=== PATIENT | male | born 1985 | race Caucasian/White ===

== ENCOUNTER 2019-09-22 16:31 | IRF | payer OTHER, SELFPAY ==
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
--- NOTE | ~2019-09-22 | XR_ITS ---
EXAMINATION: XR barium swallow modified DATE: 09/25/2019 10:20 INDICATION: Recent intubation. TECHNIQUE: The patient was given barium-containing material of multiple consistencies to swallow by t he speech pathologist while I performed fluoroscopy. Fluoroscopy exposure time was 0.9 minutes. The n umber of fluoroscopy images saved to the PACS was 1. Dose-area product was 0.648 Gy-cm^2. FINDINGS: There is laryngeal penetration of uncontrolled thin liquids. No aspiration. IMPRESSION: 1. Laryngeal penetration of uncontrolled thin liquids. No aspiration. 2. Please refer to the speech therapy report for recommendations. Reviewed, dictated and finalized at location A.
[2019-09-22 16:25] VITALS: BP 111/66; PULSE 104; RESP 20; TEMP 36.6; O2SAT 99; BMI 20.5
--- NOTE | 2019-09-22 16:40 | ADMGEN ---
This patient, Hang A Patricia, was admitted to [facility] Room 225-02. Patient/family oriented to hospital policies and general routines including ID bracelet, bed and alarms, visiting hours, pain management, procedures, bathroom and other care routines, personal items, smoking policy, room service/diet, and visiting hours. Valuables list has been completed. Information on how to activate the Rapid Response Team has been discussed. Patient/Family are encouraged to report perceived risks to care and to ask questions if they do not understand what they are told or what they should do.
[2019-09-22 16:50] VITALS: BMI 21.1
[2019-09-22 21:57] VITALS: BP 99/45; PULSE 93; RESP 18; TEMP 35.9; O2SAT 97
[2019-09-23 05:24] LABS: Basophils Absolute Auto 0.1 K/mm3 (0.0-0.1); Basophils Percent Auto 1.3 % (0.2-1.2); Eosinophils Absolute Auto 1.1 K/mm3 (0-0.3); Eosinophils Percent Auto 10.8 % (0-4.4); Hematocrit 33.9 % (42.0-52.0); Hemoglobin 11.2 g/dL (14.0-18.0); Immature Granulocyte Absolute 0.38 K/mm3 (0.00-0.031); Immature Granulocyte Percent A 3.7 % (0-0.5); Lymphocytes Absolute Auto 2.11 K/mm3 (0.9-3.2); Lymphocytes Percent Auto 20.4 % (18.3-44.2); Mean Corpuscular Hemoglobin 28.9 pg (26-34); Mean Corpuscular Volume 87.4 fl (80-100); Mean Platelet Volume 9.4 fl (7.4-10.4); Monocytes Absolute Auto 1.1 K/mm3 (0.1-0.6); Monocytes Percent Auto 10.7 % (2.6-8.5); Neutrophils Absolute Auto 5.5 K/mm3 (1.3-6.7); Neutrophils Percent Auto 53.1 % (45.5-73.1); Platelet Count Result 534 k/mm3 (150-375); Red Blood Count 3.88 M/mm3 (4.6-6.20); Red Cell Distribution Width 13.3 % (11.5-14.5); White Blood Count 10.3 K/mm3 (4.5-10.0)
[2019-09-23 05:33] LABS: Blood Urea Nitrogen 19 mg/dL (9-20); Calcium 9.1 mg/dL (8.4-10.2); Carbon Dioxide 32 mmol/L (22-30); Chloride 95 mmol/L (98-107); Estimated CRCL calculation 105 ml/min; Estimated Glomerular Filt Rate > 60; Glucose 103 mg/dL (75-110); Potassium 4.3 mmol/L (3.4-5.0); Sodium 133 mmol/L (137-145)
[2019-09-23 06:00] VITALS: BP 104/50; PULSE 84; RESP 185; TEMP 35.9; O2SAT 97
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
[2019-09-23] MEDS: APIXABAN 2.5 MG TABLET PO ×2 (10:13→18:52)
[2019-09-23] MEDS: DOCUSATE SODIUM LIQ 100 MG/10 ML UDC 50 MG PO (10:13)
[2019-09-23] MEDS: BACITRACIN OINTMENT 15 GM TUBE 1 APPLIC TOPICAL ×2 (10:13→17:56)
[2019-09-23 11:00] VITALS: BMI 21.1
--- NOTE | 2019-09-23 11:20 | PCNSR ---
On 09/23/19, the student, Lobo Granados, provided care and completed [facility] documentation on this patient. I have reviewed the student's documentation and agree with the findings.
--- NOTE | 2019-09-23 11:44 | PCPTNOTE ---
Hang Patricia was evaluated for a hemicane on 09/23/2019 by this physical therapist. The hemicane will resolve patient's mobility limitations and will be used for ADL's within the home. The patient can safely use the hemicane. ?The hemicane will resolve the patient?s mobility deficits, including safe transfers and short distance gait. Fide Pulliam PT
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
[2019-09-23 14:00] VITALS: BP 115/64; PULSE 94; RESP 20; TEMP 37.1; O2SAT 100
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
--- NOTE | 2019-09-23 16:30 | PCCCNOTE ---
On 09/23/19, the student, [Awais Cespedes], provided care and completed [facility] documentation on this patient. I have reviewed the student's documentation and agree with the findings.
[2019-09-23] MEDS: CYCLOBENZAPRINE HCL 10 MG TABLET PO (19:59)
[2019-09-23 22:00] VITALS: BP 114/68; PULSE 82; RESP 18; TEMP 36.4; O2SAT 100
[2019-09-24] MEDS: CYCLOBENZAPRINE HCL 10 MG TABLET PO ×3 (02:59→20:19)
[2019-09-24 06:00] VITALS: BP 118/64; PULSE 72; RESP 18; TEMP 36.4; O2SAT 99
[2019-09-24] MEDS: APIXABAN 2.5 MG TABLET PO ×2 (09:51→17:18)
[2019-09-24] MEDS: BACITRACIN OINTMENT 15 GM TUBE 1 APPLIC TOPICAL ×2 (09:51→17:18)
[2019-09-24] MEDS: DOCUSATE SODIUM 100 MG CAPSULE PO (09:51)
[2019-09-24 11:14] VITALS: PULSE 72; RESP 18; O2SAT 99
[2019-09-24 14:00] VITALS: BP 113/55; PULSE 106; RESP 20; TEMP 36.6; O2SAT 99
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
[2019-09-24 21:58] VITALS: BP 106/55; PULSE 80; RESP 16; TEMP 36.9; O2SAT 97
[2019-09-25] MEDS: CYCLOBENZAPRINE HCL 10 MG TABLET PO ×2 (04:15→13:10)
[2019-09-25 06:00] VITALS: BP 108/58; PULSE 93; RESP 18; TEMP 36.7; O2SAT 97
[2019-09-25] MEDS: DOCUSATE SODIUM 100 MG CAPSULE PO (08:47)
[2019-09-25] MEDS: APIXABAN 2.5 MG TABLET PO ×2 (08:47→16:47)
[2019-09-25] MEDS: BACITRACIN OINTMENT 15 GM TUBE 1 APPLIC TOPICAL ×2 (08:50→16:47)
--- NOTE | 2019-09-25 12:10 | PCSTNOTE ---
Modified barium swallow study completed. Please see ST evaluation for further information.
[2019-09-25 14:00] VITALS: BP 113/69; PULSE 103; RESP 20; TEMP 36.3; O2SAT 100
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
[2019-09-25 22:00] VITALS: BP 120/60; PULSE 94; RESP 18; TEMP 36; O2SAT 98
--- NOTE | 2019-09-26 01:45 | PCOTNOTE ---
Attempted to see patient for afternoon occupational therapy session, but patient was on hold per nursing pending further medical workup.
[2019-09-26 06:00] VITALS: BP 117/70; PULSE 90; RESP 18; TEMP 35.9; O2SAT 97
[2019-09-26] MEDS: APIXABAN 2.5 MG TABLET PO ×2 (08:18→17:24)
[2019-09-26] MEDS: DOCUSATE SODIUM 100 MG CAPSULE PO (08:18)
[2019-09-26] MEDS: BACITRACIN OINTMENT 15 GM TUBE 1 APPLIC TOPICAL ×2 (08:19→17:26)
[2019-09-26] MEDS: CYCLOBENZAPRINE HCL 10 MG TABLET PO ×2 (08:20→17:26)
[2019-09-26 09:27] LABS: Basophils Absolute Auto 0.1 K/mm3 (0.0-0.1); Basophils Percent Auto 0.7 % (0.2-1.2); Eosinophils Percent Auto 8.8 % (0-4.4); Hematocrit 36.5 % (42.0-52.0); Immature Granulocyte Absolute 0.18 K/mm3 (0.00-0.031); Immature Granulocyte Percent A 1.6 % (0-0.5); Lymphocytes Absolute Auto 1.64 K/mm3 (0.9-3.2); Lymphocytes Percent Auto 14.3 % (18.3-44.2); Mean Corpuscular HGB Conc 32.9 g/dl (32-36); Mean Corpuscular Hemoglobin 28.9 pg (26-34); Mean Platelet Volume 8.8 fl (7.4-10.4); Monocytes Percent Auto 8.6 % (2.6-8.5); Neutrophils Absolute Auto 7.6 K/mm3 (1.3-6.7); Platelet Count Result 426 k/mm3 (150-375); Red Blood Count 4.15 M/mm3 (4.6-6.20); Red Cell Distribution Width 13.6 % (11.5-14.5); White Blood Count 11.5 K/mm3 (4.5-10.0)
[2019-09-26 09:41] LABS: Alanine Aminotransferase 56 U/L (4-50); Albumin Level 3.7 g/dL (3.5-5.1); Alkaline Phosphatase 246 U/L (38-126); Aspartate Amino Transferase 36 U/L (17-59); Bilirubin,Total 0.3 mg/dL (0.2-1.3); Blood Urea Nitrogen 15 mg/dL (9-20); Calcium 9.4 mg/dL (8.4-10.2); Carbon Dioxide 29 mmol/L (22-30); Chloride 100 mmol/L (98-107); Estimated CRCL calculation 119 ml/min; Estimated Glomerular Filt Rate > 60; Glucose 108 mg/dL (75-110); Potassium 3.9 mmol/L (3.4-5.0); Sodium 138 mmol/L (137-145)
--- NOTE | 2019-09-26 09:59 | PCOTNOTE ---
OT treatment withheld due to change in medical status. Treatment rescheduled for this afternoon pending physician recommendation. Will continue to follow.
--- NOTE | 2019-09-26 11:15 | PCPTNOTE ---
Patient did not have physical therapy this am due to medical changes/nursing hold. Will attempt in pm if nursing ok's. Fide Pulliam PT
[2019-09-26 14:00] VITALS: BP 111/65; PULSE 92; RESP 20; TEMP 36.5; O2SAT 99
--- NOTE | 2019-09-26 14:18 | PC.NURSE ---
call placed to [facility] trauma surgery regarding patient's ct results as well as notes from wound nurse regarding fluid pocket noted this morning. awaiting call back at this time. Dr Victoria also updated on CT results and requested surgical consult. Dr Martinez's office called with consult. pt's mom at bedside. Patient and mom updated that Dr Victoria requested a surgical consult. will continue to monitor.
--- NOTE | 2019-09-26 14:30 | PC.NURSE ---
Roderick ACID PUMPER from trauma surgery returned call at this time. Discussed with him the CT results and findings from wound care nurse this morning. Roderick stated that it should be appropriate for general surgery here to look into the draining abscess to see if they could handle it here. He stated they were aware of the adrenal mass and the liver laceration. He stated there was debridement done to that R flank area where road rash is on approximately 09/02 and 09/05.
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
[2019-09-26 22:00] VITALS: BP 125/61; PULSE 99; RESP 18; TEMP 36.8; O2SAT 98
[2019-09-27] VITALS (11 sets, daily range): BP systolic 104–128; BP diastolic 57–76; PULSE 81–116; RESP 16–22; TEMP 36.5–37.4; O2SAT 94–100
[2019-09-27] MEDS: CYCLOBENZAPRINE HCL 10 MG TABLET PO ×2 (02:25→16:54)
[2019-09-27 05:14] LABS: Hematocrit 33.5 % (42.0-52.0); Hemoglobin 10.9 g/dL (14.0-18.0); Mean Corpuscular HGB Conc 32.5 g/dl (32-36); Mean Corpuscular Hemoglobin 28.9 pg (26-34); Mean Corpuscular Volume 88.9 fl (80-100); Platelet Count Result 380 k/mm3 (150-375); Red Blood Count 3.77 M/mm3 (4.6-6.20); Red Cell Distribution Width 13.5 % (11.5-14.5); White Blood Count 11.3 K/mm3 (4.5-10.0)
--- NOTE | 2019-09-27 07:50 | PM.PNGS ---
Progress Note: A&P Assessment and Plan (1) Post-traumatic seroma: Code(s): T79.2XXA - Traumatic secondary and recurrent hemorrhage and seroma, initial encounter Status: Acute Assessment and Plan: Patient still having swelling and pain in region of right flank and hip. Will proceed with incision and drainage of right flank seroma today. Discussed procedure, risks, benefits, and alternatives. Questions answered. (2) Multiple abrasions: Code(s): T07.XXXA - Unspecified multiple injuries, initial encounter Status: Acute Subjective Subjective Date/Time Seen: 09/27/19 07:50 Patient still has swelling and pain in right flank/hip region. No fevers. Exam Skin: Other: Eschar and abrasion overlying the right flank/hip region with swelling and small bulla forming. No erythema or purulent drainage. Objective Data Vital Signs Vital Signs: Vital Signs - 24 hr 09/26/19 14:00 09/26/19 22:00 09/27/19 06:00 Temperature 36.5 C 36.8 C 36.5 C Pulse Rate 92 99 81 Respiratory Rate 20 18 17 Blood Pressure 111/65 125/61 108/57 L Pulse Oximetry 99 98 97 Intake/Output Intake/Output: Intake & Output 09/24/19 09/25/19 09/26/19 09/27/19 23:59 23:59 23:59 23:59 Intake Total 720 480 720 Balance 720 480 720 Meds/Results Medications: Active Medications Generic Name Dose Route Start Last Admin Trade Name Freq PRN Reason Stop Dose Admin Hydrocodone Bitart/Acetaminophen 1 tab 09/22/19 18:53 09/27/19 06:25 [place] 5-325 Mg PO 1 tab Q4H PRN Administration Pain Rated 4-6 Apixaban 2.5 mg 09/23/19 09:00 09/26/19 17:24 Eliquis PO 10/27/19 17:01 2.5 mg BID RADHA Administration Bacitracin 1 applic 09/22/19 17:00 09/26/19 17:26 Bacitracin Oint 15 Gm TOPICAL 10/23/19 17:01 1 applic BID RADHA Administration Bisacodyl 10 mg 09/22/19 17:58 Dulcolax Suppository RECTAL DAILY PRN Constipation Cyclobenzaprine HCl 10 mg 09/22/19 17:58 09/27/19 02:25 Flexeril PO 10 mg TID PRN Administration Muscle Spasm Docusate Sodium 100 mg 09/24/19 09:00 09/26/19 08:18 Colace Capsule PO 100 mg QAM RADHA Administration Radiology Results: ITS Impressions Modified Barium Swallow 09/25/19 10:58 IMPRESSION: 1. Laryngeal penetration of uncontrolled thin liquids. No aspiration. 2. Please refer to the speech therapy report for recommendations. Abdomen/Pelvis CT 09/26/19 12:47 IMPRESSION: 1. Superficial draining abscess of the right flank subcutaneous tissues with apparent mild involvement of the superolateral aspect of the right gluteus leida muscle. 2. Evolving liver laceration. 3. 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 4. Healing pelvic fractures as described above. 5. Moderate-sized right and small left pleural effusions with associated atelectasis in the lower lobes. Labs Labs: Laboratory Results - last 24 hr 09/26/19 09/26/19 09/27/19 09:15 09:15 04:55 WBC 11.5 H 11.3 H RBC 4.15 L 3.77 L Hgb 12.0 L 10.9 L Hct 36.5 L 33.5 L MCV 88.0 88.9 MCH 28.9 28.9 MCHC 32.9 32.5 RDW 13.6 13.5 Plt Count 426 H 380 H MPV 8.8 9.0 Immature Gran % (Auto) 1.6 H Neut % (Auto) 66.0 Lymph % (Auto) 14.3 L Boyle % (Auto) 8.6 H Eos % (Auto) 8.8 H Baso % (Auto) 0.7 Lymph # (Auto) 1.64 Boyle # (Auto) 1.0 H Eos # (Auto) 1.0 H Baso # (Auto) 0.1 Abs Immat Gran (auto) 0.18 H Absolute Neuts (auto) 7.6 H Absolute Nucleated RBC 0.0 Nucleated RBC % 0.0 Sodium 138 Potassium 3.9 Chloride 100 Carbon Dioxide 29 BUN 15 Creatinine 0.70 Estim Creat Clear Calc 119 Estimated GFR > 60 Glucose 108 Calcium 9.4 Total Bilirubin 0.3 AST 36 ALT 56 H Alkaline Phosphatase 246 H Total Protein 7.0 Albumin 3.7
--- NOTE | 2019-09-27 08:09 | PCOTNOTE ---
Patient declined OT treatment this AM due to c/o pain and fatigue. Will continue per POC.
--- NOTE | 2019-09-27 09:47 | PCPTNOTE ---
Attempted PT treatment. Pt refused as he is having surgery this afternoon. Will try again tomorrow.
--- NOTE | 2019-09-27 09:52 | PC.NURSE ---
spoke with Dr Pollack this morning regarding medications due this morning and updated Dr about NPO status and surgical procedure with Dr Martinez. Dr Pollack said okay to go ahead and hold PO meds this morning which are eliquis and colace.
[2019-09-27] MEDS: BACITRACIN OINTMENT 15 GM TUBE 1 APPLIC TOPICAL ×2 (09:55→16:56)
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
--- NOTE | 2019-09-27 12:49 | PCSTNOTE ---
Patient refused tx this date due to medical condition.
--- NOTE | 2019-09-27 12:51 | PC.NURSE ---
patient being taken down to surgery at this time for his procedure. He is being accompanied by OR staff. His mom is at his bedside at this time.
[2019-09-27] MEDS: LACTATED RINGERS 1,000 ML 30 ML IV CONT (13:05)
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
--- NOTE | 2019-09-27 14:03 | SUR.PREOP ---
Discussed delay with patient. Voices understanding.
[2019-09-27] MEDS: BUPIVACAINE/EPINEPHRINE 0.5% 10 ML VIAL 11 ML INFILTRATE (14:48)
--- NOTE | 2019-09-27 15:10 | PCOTNOTE ---
Therapist discussed equipment needs with patient's mother. Patient's mother reports they will not need tub seat or bedside commode at this time as she has just remodeled her bathroom and they will not be necessary.
--- NOTE | 2019-09-27 15:55 | PC.NURSE ---
pt arrived back to the unit. no s/s of any distress noted. will continue to monitor.
[2019-09-27] MEDS: APIXABAN 2.5 MG TABLET PO (16:53)
--- NOTE | 2019-09-27 17:07 | P.OP_ITS ---
Procedure Note - Detailed Date of procedure: 09/27/19 Pre-op diagnosis: traumatic seroma Post-op diagnosis: other (necrotic wound right hip, post traumatic seroma right hip) Procedure performed: 1. Sharp excisional debridement of 7 cm x 2.5 cm right hip necrotic wound including skin 2. Incision and drainage of right hip posttraumatic seroma Description of procedure: * Procedure as well as risks, benefits, and alternatives were discussed to the patient. Written consent was obtained and placed in chart prior to procedure. Patient was brought back to surgical suite. He was placed supine on operating table. Time-out was done to confirm patient and procedure. Patient was intubated by Anesthesia Department with LMA. His right hip area was prepped and draped in sterile fashion using Betadine prep. The area of abrasion and necrotic tissue was identified in the right hip region. 0.5% bupivacaine with epinephrine was infiltrated locally around the necrotic tissue. A 15 blade scalpel then used to sharply debride the necrotic skin. This appeared to be full-thickness and once excising this necrotic skin, I entered into the seroma. The seroma was opened and drained completely. The wound bed was inspected and appeared healthy and viable. There was no evidence of purulence drainage or necrotizing fasciitis. The wound was irrigated with sterile saline and then was measured and packed with 1 in iodoform gauze. Fluff gauze and ABD pad and Medipore tape were then applied. Patient was awakened from anesthesia and transferred to recovery. Anesthesia: GLMA and local ( 0.5% bupivacaine with epinephrine) Surgeon: Zan Martinez DO Estimated blood loss (mL): 5 Packing: Yes (1 Iodoform gauze) Pathology: none sent Complications: No immediate complications Condition: stable Disposition: other ( TRC) Findings: * the patient had an abrasion over his right hip area with a necrotic eschar on the surface in the central portion. There was swelling deep to this area. There was 1 small bulla just inferior to the eschar that was draining serous fluid. The eschar was sharply debrided using a 15 blade scalpel. It was excised all the way back to healthy viable appearing tissue. The debridement included skin only. The dimensions of the debridement measured 7 cm x 2.5 cm. Once the necrotic skin was excised, the seroma was entered and drained completely. This appeared to be a very wide subcutaneous seroma without any evidence of infection. The fluid appeared to be a clear yellow serous fluid. The seroma extended approximately 4 cm underneath the skin in the 4-5 o'clock position. It tunneled 12 cm inferiorly at the 6 to 7 o'clock position. It tunneled 6 cm in the 9 o'clock position and 2 cm in the 10-12 o'clock position. The wound was loosely packed with 1 in iodoform gauze. No cultures were taken as this appeared to be sterile fluid collection and no specimens were sent for pathology.
--- NOTE | 2019-09-27 17:41 | PC.NURSE ---
pt has dressing intact from surgery. no new wound orders at this time. patient stated Dr told him it would get changed tomorrow and that Dr was debating on best treatment for the area. will continue to monitor.
[2019-09-28 05:58] VITALS: BP 117/64; PULSE 99; RESP 18; TEMP 36.4; O2SAT 99
[2019-09-28] MEDS: CYCLOBENZAPRINE HCL 10 MG TABLET PO ×2 (07:14→23:04)
--- NOTE | 2019-09-28 08:03 | WPDANESPN ---
Anes - Prog Note Post-Op Date/Time: 09/28/19 08:03 Cardiovascular status: normal Respiratory status: normal Airway patency: baseline Mental status: baseline Post-Op hydration status: normal Vital Signs: Last Vital Signs Temp 36.4 C 09/28/19 05:58 Pulse 99 09/28/19 05:58 Resp 18 09/28/19 05:58 BP 117/64 09/28/19 05:58 Pulse Ox 99 09/28/19 05:58 I/O: Intake & Output 09/27/19 09/28/19 09/28/19 23:59 07:59 15:59 Intake Total 710 Balance 710 Laboratory Tests 09/27/19 04:55 09/26/19 09:15 Post-procedural complaints: none Patient Feedback: Patient satisfied with anesthetic care.
[2019-09-28] MEDS: DOCUSATE SODIUM 100 MG CAPSULE PO (09:24)
[2019-09-28] MEDS: APIXABAN 2.5 MG TABLET PO ×2 (09:24→16:20)
[2019-09-28] MEDS: BACITRACIN OINTMENT 15 GM TUBE 1 APPLIC TOPICAL ×2 (09:28→16:21)
[2019-09-28] MEDS: HYDROmorphone HCL 2 MG/ML VIAL 1 MG IV PUSH (09:35)
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
--- NOTE | 2019-09-28 10:48 | PCNSR ---
On 09/28/19, the student, Lobo Granados, provided care and completed [facility] documentation on this patient. I have reviewed the student's documentation and agree with the findings.
[2019-09-28 14:00] VITALS: BP 111/59; PULSE 110; RESP 20; TEMP 36.7; O2SAT 97
--- NOTE | 2019-09-28 14:11 | PCOTNOTE ---
Attempted to see patient this pm, however patient declined due to pain. Pt reported 8/10 tearing pain.
--- NOTE | 2019-09-28 14:19 | PM.PNGS ---
Progress Note: A&P Assessment and Plan (1) Post-traumatic seroma: Code(s): T79.2XXA - Traumatic secondary and recurrent hemorrhage and seroma, initial encounter Status: Acute Assessment and Plan: Continue wound care with wound vac changes. Monitor for any signs of infection. Will re-assess on Thursday. (2) Nonhealing nonsurgical wound: Code(s): T14.8XXA - Other injury of unspecified body region, initial encounter Status: Acute Subjective Subjective Date/Time Seen: 09/28/19 14:19 Patient doing well today. Wound care nurses removed packing and placed wound vac today. Minimal drainage so far in wound vac. Exam Skin: Other: Wound vac in place over right hip wound. Surrounding skin health appearing. Objective Data Vital Signs Vital Signs: Vital Signs - 24 hr 09/27/19 14:53 09/27/19 15:05 09/27/19 15:20 Temperature 36.5 C Pulse Rate 84 98 94 Respiratory Rate 20 18 18 Blood Pressure 109/66 105/65 107/69 Pulse Oximetry 99 100 97 09/27/19 15:35 09/27/19 15:55 09/27/19 16:10 Temperature 36.6 C 36.5 C Pulse Rate 94 90 99 Respiratory Rate 20 16 18 Blood Pressure 104/63 108/62 107/60 Pulse Oximetry 94 96 94 09/27/19 17:40 09/27/19 21:59 09/28/19 05:58 Temperature 36.9 C 36.7 C 36.4 C Pulse Rate 116 H 111 H 99 Respiratory Rate 22 H 18 18 Blood Pressure 112/68 128/76 117/64 Pulse Oximetry 97 97 99 Intake/Output Intake/Output: Intake & Output 09/25/19 09/26/19 09/27/19 09/28/19 23:59 23:59 23:59 23:59 Intake Total 480 720 710 240 Output Total 840 Balance 480 720 -130 240 Meds/Results Medications: Active Medications Generic Name Dose Route Start Last Admin Trade Name Freq PRN Reason Stop Dose Admin Hydrocodone Bitart/Acetaminophen 2 tab 09/28/19 09:08 [place] 5-325 Mg PO Q4H PRN Pain Rated 4-6 Apixaban 2.5 mg 09/23/19 09:00 09/28/19 09:24 Eliquis PO 10/27/19 17:01 2.5 mg BID RADHA Administration Bacitracin 1 applic 09/22/19 17:00 09/28/19 09:28 Bacitracin Oint 15 Gm TOPICAL 10/23/19 17:01 1 applic BID RADHA Administration Bisacodyl 10 mg 09/22/19 17:58 Dulcolax Suppository RECTAL DAILY PRN Constipation Cyclobenzaprine HCl 10 mg 09/22/19 17:58 09/28/19 07:14 Flexeril PO 10 mg TID PRN Administration Muscle Spasm Docusate Sodium 100 mg 09/24/19 09:00 09/28/19 09:24 Colace Capsule PO 100 mg QAM RADHA Administration Hydromorphone HCl 1 mg 09/28/19 09:25 09/28/19 09:35 Dilaudid Inj IV PUSH 1 mg Q4HR PRN Administration Wound Care Polysaccharide Iron Complex 150 mg 09/28/19 17:00 Niferex-150 PO BIDWM RADHA Simethicone 80 mg 09/27/19 17:48 Mylicon PO QID PRN Gas Discomfort Radiology Results: ITS Impressions Modified Barium Swallow 09/25/19 10:58 IMPRESSION: 1. Laryngeal penetration of uncontrolled thin liquids. No aspiration. 2. Please refer to the speech therapy report for recommendations. Abdomen/Pelvis CT 09/26/19 12:47 IMPRESSION: 1. Superficial draining abscess of the right flank subcutaneous tissues with apparent mild involvement of the superolateral aspect of the right gluteus leida muscle. 2. Evolving liver laceration. 3. 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 4. Healing pelvic fractures as described above. 5. Moderate-sized right and small left pleural effusions with associated atelectasis in the lower lobes.
--- NOTE | 2019-09-28 14:59 | PCPTNOTE ---
After attempting multiple times to complete Physical Therapy, patient only completed 35 minutes total of PT minutes due to medical status and pain. Kim Demarco, TRIAGE REGISTER NURSE
--- NOTE | 2019-09-28 15:45 | PCPTNOTE ---
Patient missed AM minutes due to wound care nurse in room placing wound vac and pain medication needing to be given secondary to increased pain with wound dressing.
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
[2019-09-28] MEDS: SIMETHICONE 80 MG TAB.CHEW PO ×2 (16:19→18:22)
[2019-09-28] MEDS: POLYSACCHARIDE IRON COMPLEX 150 MG CAPSULE PO (16:21)
[2019-09-28 22:00] VITALS: BP 104/47; PULSE 111; RESP 20; TEMP 36.6; O2SAT 97
[2019-09-29 06:00] VITALS: BP 107/66; PULSE 80; RESP 18; TEMP 36.1; O2SAT 99
[2019-09-29] MEDS: APIXABAN 2.5 MG TABLET PO ×2 (08:53→17:33)
[2019-09-29] MEDS: POLYSACCHARIDE IRON COMPLEX 150 MG CAPSULE PO ×2 (08:53→17:33)
[2019-09-29] MEDS: DOCUSATE SODIUM 100 MG CAPSULE PO (08:53)
[2019-09-29] MEDS: BACITRACIN OINTMENT 15 GM TUBE 1 APPLIC TOPICAL ×2 (09:00→17:34)
[2019-09-29 14:00] VITALS: BP 100/57; PULSE 102; RESP 22; TEMP 36.9; O2SAT 97
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
[2019-09-29] MEDS: CYCLOBENZAPRINE HCL 10 MG TABLET PO ×2 (17:34→21:59)
[2019-09-29 21:49] VITALS: BP 112/58; PULSE 103; RESP 18; TEMP 36.6; O2SAT 97
[2019-09-30 05:06] LABS: Basophils Absolute Auto 0.1 K/mm3 (0.0-0.1); Basophils Percent Auto 0.7 % (0.2-1.2); Eosinophils Absolute Auto 0.9 K/mm3 (0-0.3); Eosinophils Percent Auto 8.2 % (0-4.4); Hematocrit 32.9 % (42.0-52.0); Hemoglobin 10.5 g/dL (14.0-18.0); Immature Granulocyte Absolute 0.19 K/mm3 (0.00-0.031); Immature Granulocyte Percent A 1.7 % (0-0.5); Lymphocytes Absolute Auto 2.06 K/mm3 (0.9-3.2); Lymphocytes Percent Auto 18.6 % (18.3-44.2); Mean Corpuscular HGB Conc 31.9 g/dl (32-36); Mean Corpuscular Hemoglobin 28.2 pg (26-34); Mean Corpuscular Volume 88.2 fl (80-100); Mean Platelet Volume 9.2 fl (7.4-10.4); Monocytes Absolute Auto 1.1 K/mm3 (0.1-0.6); Monocytes Percent Auto 10.1 % (2.6-8.5); Neutrophils Absolute Auto 6.7 K/mm3 (1.3-6.7); Neutrophils Percent Auto 60.7 % (45.5-73.1); Platelet Count Result 328 k/mm3 (150-375); Red Blood Count 3.73 M/mm3 (4.6-6.20); Red Cell Distribution Width 13.7 % (11.5-14.5); White Blood Count 11.1 K/mm3 (4.5-10.0)
[2019-09-30 05:17] LABS: Blood Urea Nitrogen 17 mg/dL (9-20); Calcium 9.1 mg/dL (8.4-10.2); Carbon Dioxide 30 mmol/L (22-30); Chloride 97 mmol/L (98-107); Estimated CRCL calculation 119 ml/min; Estimated Glomerular Filt Rate > 60; Glucose 99 mg/dL (75-110); Potassium 4.2 mmol/L (3.4-5.0); Sodium 135 mmol/L (137-145)
[2019-09-30 06:00] VITALS: BP 122/70; PULSE 87; RESP 16; TEMP 36.3; O2SAT 99
[2019-09-30] MEDS: POLYSACCHARIDE IRON COMPLEX 150 MG CAPSULE PO ×2 (08:35→17:18)
[2019-09-30] MEDS: APIXABAN 2.5 MG TABLET PO ×2 (08:36→17:18)
[2019-09-30] MEDS: DOCUSATE SODIUM 100 MG CAPSULE PO (08:36)
[2019-09-30] MEDS: HYDROmorphone HCL 2 MG/ML VIAL 1 MG IV PUSH (09:41)
--- NOTE | 2019-09-30 10:36 | PM.PNGS ---
Progress Note: A&P Assessment and Plan (1) Post-traumatic seroma: Code(s): T79.2XXA - Traumatic secondary and recurrent hemorrhage and seroma, initial encounter Status: Acute Assessment and Plan: The wound looks good today with no signs of infection. We will continue with wound VAC dressing changes. Per the career development coordinator, [facility] has been set up to do outpatient dressing changes. Patient can take the oral pain medication to pre-medicate for dressing changes. Continue to monitor for signs of infection. Okay from a surgical standpoint to discharge the patient when okay with other services. Follow-up with Dr. Martinez in the wound clinic in 2-3 weeks. (2) Nonhealing nonsurgical wound: Code(s): T14.8XXA - Other injury of unspecified body region, initial encounter Status: Acute Additional Plan Discussed plan of care with Dr. Martinez. Subjective Subjective Date/Time Seen: 09/30/19 10:00 Post Op day: 3 Patient reports: no new complaints Interval history: Patient seen and examined with the wound care nurses today for wound VAC dressing change. Patient reports pain is tolerable and he was actually able to do his physical therapy yesterday with the wound VAC in place and did well with this. He has been taking [place] PRN for pain. No other complaints at this time. Review of Systems Review of Systems: All systems reviewed & are unremarkable except as noted in HPI and below Exam Const: General: comfortable, no acute distress, alert and awake Nutritional Appearance: average body habitus Orientation/consciousness: patient oriented x3 Skin: Other: Right hip wound VAC dressing removed. Wound bed has good granulation tissue forming with decrease in length of tunneling and depth. No necrotic tissue or fluid pockets noted. The surrounding skin has excoriation from the previous trauma. Neuro: General: moves all extremities and no focal motor deficits Extrem: General: no clubbing, cyanosis or edema Psych: Mental Status: mental status grossly normal Affect: Anxious affect present Attitude: cooperative Insight: Good insight present (Psych) Judgement: Good judgement present (Psych) Objective Data Vital Signs Vital Signs: Vital Signs - 24 hr 09/29/19 14:00 09/29/19 21:49 09/30/19 06:00 Temperature 98.4 F 97.8 F 97.3 F L Pulse Rate 102 H 103 H 87 Respiratory Rate 22 H 18 16 Blood Pressure 100/57 L 112/58 L 122/70 Pulse Oximetry 97 97 99 Intake/Output Intake/Output: Intake & Output 09/27/19 09/28/19 09/29/19 09/30/19 23:59 23:59 23:59 23:59 Intake Total 710 720 960 Output Total 840 Balance -130 720 960 Meds/Results Medications: Active Medications Generic Name Dose Route Start Last Admin Trade Name Freq PRN Reason Stop Dose Admin Hydrocodone Bitart/Acetaminophen 2 tab 09/28/19 09:08 09/30/19 05:56 [place] 5-325 Mg PO 2 tab Q4H PRN Administration Pain Rated 4-6 Apixaban 2.5 mg 09/23/19 09:00 09/30/19 08:36 Eliquis PO 10/27/19 17:01 2.5 mg BID RADHA Administration Bacitracin 1 applic 09/22/19 17:00 09/30/19 08:36 Bacitracin Oint 15 Gm TOPICAL 10/23/19 17:01 Not Given BID RADHA Bisacodyl 10 mg 09/22/19 17:58 Dulcolax Suppository RECTAL DAILY PRN Constipation Cyclobenzaprine HCl 10 mg 09/22/19 17:58 09/29/19 21:59 Flexeril PO 10 mg TID PRN Administration Muscle Spasm Docusate Sodium 100 mg 09/24/19 09:00 09/30/19 08:36 Colace Capsule PO 100 mg QAM RADHA Administration Hydromorphone HCl 1 mg 09/28/19 09:25 09/30/19 09:41 Dilaudid Inj IV PUSH 1 mg Q4HR PRN Administration Wound Care Polysaccharide Iron Complex 150 mg 09/28/19 17:00 09/30/19 08:35 Niferex-150 PO 150 mg BIDWM RADHA Administration Simethicone 80 mg 09/27/19 17:48 09/28/19 18:22 Mylicon PO 80 mg QID PRN Administration Gas Discomfort Tolnaftate 1 applic 09/30/19 09:50 Tolnaftate 1% P
[2019-09-30] MEDS: CYCLOBENZAPRINE HCL 10 MG TABLET PO ×3 (11:40→21:54)
[2019-09-30 14:00] VITALS: BP 105/59; PULSE 104; RESP 18; TEMP 37.1; O2SAT 96
--- NOTE | 2019-09-30 14:59 | PCWOUND ---
WOCN NOTE patient to discharge on Thursday10/01/19. Changed patient from Vac Ulta to the [employer] home wound vac. Patient signed papers taking ownership of machine. Educated patient on proper handling and care of wound vac. Andreina HERNDON for patient at bedside during education. Andreina HERNDON to educate mother on wound vac when she arrives later today.
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
[2019-09-30 22:00] VITALS: BP 107/56; PULSE 97; RESP 18; TEMP 36.3; O2SAT 97
[2019-10-01 06:00] VITALS: BP 106/59; PULSE 91; RESP 18; TEMP 36.3; O2SAT 98
[2019-10-01 08:00] VITALS: PULSE 91; RESP 18; O2SAT 98
[2019-10-01] MEDS: DOCUSATE SODIUM 100 MG CAPSULE PO (09:34)
[2019-10-01] MEDS: APIXABAN 2.5 MG TABLET PO (09:34)
[2019-10-01] MEDS: POLYSACCHARIDE IRON COMPLEX 150 MG CAPSULE PO (09:34)
[2019-10-01] MEDS: CYCLOBENZAPRINE HCL 10 MG TABLET PO (09:40)
--- NOTE | 2019-10-01 16:09 | PC.NURSE ---
[facility] pharmacy called and stated that patient had dropped off two scripts for [place] and a script for Morphine this afternoon. Pharmacist wanted to know if they should fill both scripts because this a.m. patient had a script for Oxycodone 5mg po one tab q 6 hrs #20 filled this a.m. The Oxycodone script was from a different doctor. I Called Dr. Victoria and talked with him and he advised to NOT fill the [place] or morphine at this time. Let patient take the oxycodone. Talked with Lorena at [facility] pharmacy and they were advised not to fill the two pain scripts at this time.
--- NOTE | 2019-10-02 10:08 | PC.NURSE ---
Hang called nurse's station this morning stating pain meds was not working. Morphine po was added for him to take prior to wound vac changes. This television writer called Dr Victoria regarding pain medication. Dr Victoria requested a call be place to pharmacy to release the morphine script only. Laurel yung was called and requested morphine script be released and add instructions that this medication is to be taken 30 minutes prior to wound vac changes. Hang called back and updated that morphine script was being filled by pharmacy. 

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
== END 2019-10-01 13:20 | disposition home health service (06) | DRG 950 ==
PROVIDERS: Psychiatry & Neurology Neurology; Surgery; Admitting Provider Psychiatry & Neurology Neurology; PCP Family Medicine; Visit Provider Psychiatry & Neurology Neurology
PROC: 0HBHXZZ Excision of Right Upper Leg Skin, External Approach (ICD-10-PCS; principal; 2019-09-27 13:45)
DX: S06.2X9D Diffuse traumatic brain injury with loss of consciousness of unspecified duration, subsequent encounter (principal); T79.2XXD Traumatic secondary and recurrent hemorrhage and seroma, subsequent encounter; S32.491D Other specified fracture of right acetabulum, subsequent encounter for fracture with routine healing; S30.811D Abrasion of abdominal wall, subsequent encounter; S06.319D Contusion and laceration of right cerebrum with loss of consciousness of unspecified duration, subsequent encounter; S36.116D Major laceration of liver, subsequent encounter; S42.002D Fracture of unspecified part of left clavicle, subsequent encounter for fracture with routine healing; S32.592D Other specified fracture of left pubis, subsequent encounter for fracture with routine healing; S32.038D Other fracture of third lumbar vertebra, subsequent encounter for fracture with routine healing; S32.10XD Unspecified fracture of sacrum, subsequent encounter for fracture with routine healing; S22.43XD Multiple fractures of ribs, bilateral, subsequent encounter for fracture with routine healing; S02.85XD Fracture of orbit, unspecified, subsequent encounter for fracture with routine healing; S27.321D Contusion of lung, unilateral, subsequent encounter; S01.01XD Laceration without foreign body of scalp, subsequent encounter; R13.10 Dysphagia, unspecified; R00.0 Tachycardia, unspecified; Z93.1 Gastrostomy status; Z93.0 Tracheostomy status; V89.2XXD Person injured in unspecified motor-vehicle accident, traffic, subsequent encounter
CPT/HCPCS: 36415; 74177; 80048; 80053; 85025; 85027; 92507; 92523; 92611; 97110; 97116; 97129; 97162; 97166; 97530; 97535; 97542; A9270; J1100; J1170; J2405; J2704; J3010; J7120; Q9967

== ENCOUNTER 2019-11-28 07:40 | Outpatient (RCR) | payer OTHER, SELFPAY ==
[2019-10-17 14:05] VITALS: BMI 21.1
--- NOTE | 2019-10-31 15:09 | WPDWOUNDNOTE ---
Wound Care Note Date/Time: 10/31/19 15:09 History: Patient doing well. Wound vac has been off for 2 weeks. Continuing daily dressing changes. Wound history: Sharp excisional debridement of 7 cm x 2.5 cm right hip necrotic wound including skin on 09/27/19 Wound approximation: No Wound width: 8.5cm Wound length: 2.2cm Wound depth: 0.2cm Drainage: minimal serous Surrounding tissue appearance: slightly macerated, fungal infection Tunneling: No Percentage granulation tissue: 100% Assessment and Plan Assessment and plan (1) Nonhealing nonsurgical wound: Code(s): T14.8XXA - Other injury of unspecified body region, initial encounter Status: Acute Assessment and Plan: Continue silver gel daily to open wound. Will add Lotrisone for fungal infection. Wound should continue healing with local wound care. Doubt skin graft will be necessary. Will follow up with patient in wound clinic in 4 weeks. (2) Post-traumatic seroma: Code(s): T79.2XXA - Traumatic secondary and recurrent hemorrhage and seroma, initial encounter Status: Acute Review of Systems Review of Systems: All systems reviewed & are unremarkable except as noted in HPI and below Exam Skin: Other: Open wound in right hip region. There are other areas of road rash/abrasions that appear mostly healed.
--- NOTE | 2019-10-31 15:15 | WPDWOUNDNOTE ---
Wound Care Note Date/Time: 10/17/19 15:15 History: Patient has been having wound vac changes 3 times a week since being discharged. Was having a lot of pain from the wound vac changes. Not able to get much gauze in the wound any more at this point. Wound history: Sharp excisional debridement of 7 cm x 2.5 cm right hip necrotic wound including skin 09/27/19 Wound approximation: No Wound width: 9.5cm Wound length: 4cm Wound depth: 0.2cm Drainage: Minimal serous Surrounding tissue appearance: Healthy Tunneling: None Percentage granulation tissue: 100% Assessment and Plan Assessment and plan (1) Nonhealing nonsurgical wound: Code(s): T14.8XXA - Other injury of unspecified body region, initial encounter Status: Acute Assessment and Plan: Will discontinue wound vac and start daily dressing changes. Mupirocin ointment for the blisters that are developing within the road rash areas. (2) Post-traumatic seroma: Code(s): T79.2XXA - Traumatic secondary and recurrent hemorrhage and seroma, initial encounter Status: Acute Review of Systems Review of Systems: All systems reviewed & are unremarkable except as noted in HPI and below Exam Skin: Other: Wound showing signs of healing. Surrounding skin is macerated and irritated from tape. Several small bullae developing in areas of abrasions.
--- NOTE | 2019-11-24 13:42 | PCWOUND ---
WOCN NOTE Patient did not show up for appointment, called and rescheduled.
--- NOTE | 2019-11-28 16:49 | P.PNWOUND_ITS ---
Wound Care Note Date/Time: 11/28/19 16:49 History: Patient performing daily local wound care with Mupirocin ointment. Was previously treated with wound vac but wound has closed enough. Wound history: Sharp excisional debridement of 7 cm x 2.5 cm right hip necrotic wound including skin 09/27/19 Wound approximation: Yes Wound width: 2.5cm Wound length: 0.5cm Wound depth: 0.1cm Drainage: None Surrounding tissue appearance: Healthy with mild follicular irritation Assessment and Plan Assessment and plan (1) Nonhealing nonsurgical wound: Code(s): T14.8XXA - Other injury of unspecified body region, initial encounter Status: Acute Assessment and Plan: * Wound now appears completely closed. No further wound care follow-up needed. Scar will continue to improve over the next several months. He may call back if there is any wound opening, swelling, redness, or other concerns. (2) Post-traumatic seroma: Code(s): T79.2XXA - Traumatic secondary and recurrent hemorrhage and seroma, initial encounter Status: Acute (3) Multiple abrasions: Code(s): T07.XXXA - Unspecified multiple injuries, initial encounter Status: Acute Exam Skin: Other: Right hip wound completely closed with scab overlying the wound. No drainage and healthy appearing granulation tissue.
== END 2020-01-02 11:08 | disposition home or self-care (01) ==
LOC: ANHWOC 07:40
PROVIDERS: PCP Family Medicine; Visit Provider Surgery
DX: S31.109D Unspecified open wound of abdominal wall, unspecified quadrant without penetration into peritoneal cavity, subsequent encounter (principal)
CPT/HCPCS: 99212; A9270; G0463

== ENCOUNTER 2020-01-21 12:16 | Outpatient (CLI) | payer OTHER, SELFPAY ==
--- NOTE | ~2020-01-21 | CT_ITS ---
EXAMINATION: CT abdomen pelvis wo con DATE: 01/21/2020 12:45 INDICATION: Right flank pain. Other specified abdominal hernia without obstruction or gangrene. TECHNIQUE: Computed tomography (CT) of the abdomen and pelvis was performed without intravenous contr ast. Automated exposure control and iterative reconstruction technique were employed. The dose-length product was 362.05 mGy-cm. COMPARISON: CT abdomen and pelvis 09/26/2019 FINDINGS: The visualized portions of the lung bases are clear without pneumonia or pleural effusion. The heart size is normal. No pericardial effusion. There is a 14 mm cyst in the liver. The gallbladde r, spleen, pancreas, adrenal glands, and kidneys are normal. There is no urolithiasis. There is a her wagner superior to right iliac crest containing nonobstructed ascending colon. The appendix is normal. T here are no pathologically enlarged lymph nodes. There is no free intraperitoneal fluid. There is a s mall umbilical hernia containing fat. There is screw fixation of right acetabulum and right superior pubic ramus. There are chronic bilateral L5 pars defects with 2 mm anterolisthesis of L5 on S1. There is mild thoracolumbar spondylosis. IMPRESSION: 1. Hernia superior to right iliac crest containing nonobstructed ascending colon. Reviewed, dictated and finalized at location A. [facility]STATE ASSIST[facility] IMPRESSION: 1. Hernia superior to right iliac crest containing nonobstructed ascending colo n.
== END 2020-01-21 12:17 | disposition home or self-care (01) ==
LOC: ANHIMG 12:28
PROVIDERS: PCP Family Medicine; Visit Provider Surgery
DX: K45.8 Other specified abdominal hernia without obstruction or gangrene (principal); K76.89 Other specified diseases of liver
CPT/HCPCS: 74176

== ENCOUNTER 2020-09-16 14:22 | Emergency (ER) | payer OTHER, SELFPAY ==
[2020-09-16 14:30] VITALS: BP 134/84; PULSE 89; RESP 16; TEMP 37.1; O2SAT 98
--- NOTE | 2020-09-16 15:12 | ED.SKABFB ---
HPI - Skin/Abscess/Foreign Bdy General Chief complaint: Skin/Abscess/Foreign Body Stated complaint: rash Source: patient and RN notes reviewed Limitations: no limitations History of Present Illness HPI narrative: The patient, presenting mostly healthy, presents with skin eruption. Patient states he has about a 5-day history of definitely itchy, pink only slightly raised, pink skin eruption after returning from a recent beach trip. No fever, URI, plant or lotion exposure , known tick/insect bite; symptoms are mild, unrelieved with OTC preparations and seems to have begun on his extremities, especially the upper Related Data Home Medications Medication Instructions Recorded Confirmed dextroamphetamine-amphetamine 09/16/20 oxycodone 09/16/20 Allergies Allergy/AdvReac Type Severity Reaction Status Date / Time banana Allergy Severe Swelling Verified 01/19/20 14:09 of Lip/Tongue/Throat diphenhydramine Allergy Mild Swelling Verified 01/19/20 14:09 throughout whole body Review of Systems Review of Systems: Narrative: General/Constitutional: No weight loss,fever Eyes: N0: Redness,discharge Ears/Nose/Throat: No: Epistaxis,ear discharge Respiratory: Denies: Hemoptysis Gastrointestinal: No Vomiting, Bleeding-rectal Skin: No Lumps, REPORTS eruption Neurologic: No Focal Weakness,Sz Hematologic: Denies: Petechiae/Purpura Psychiatric: No: Suicida ideationl All Other Systems: Reviewed and Negative PMF Past Medical History Medical History Lung contusion Multiple abrasions Surgical History Surgical History Status post insertion of percutaneous endoscopic gastrostomy (PEG) tube Family History Family History Father Diabetes mellitus Sibling Diabetes mellitus Social History Social History Smoking status: Former smoker Alcohol intake: unknown Substance use: unknown Substance use type: unknown 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 There is no relevant family history pertinent to the presenting complaint Exam Narrative: Exam Narrative: General Appearance: Well-nourished Normocephalic, Conjunctiva clear Ear: External ear normal Nose: Normal nose, Nare clear Mouth/Throat: Normal appearing Neck Exam: Supple Respiratory: Airway patent, No respiratory distress Musculoskeletal: Moves all extremities, Non tender Spine/Back: Normal ROM Skin: Warm, Dry small, diffuse and widespread macular papular skin eruption of trunk and extremities Neurological: A&O x3 Psychiatric: Normal mood, Normal affect Course Vital Signs Vital signs: Vital Signs Temperature 98.8 F 09/16/20 14:30 Pulse Rate 89 09/16/20 14:30 Respiratory Rate 16 09/16/20 14:30 Blood Pressure 134/84 09/16/20 14:30 Pulse Oximetry 98 09/16/20 14:30 Temperature 98.8 F 09/16/20 14:30 Pulse Rate 89 09/16/20 14:30 Respiratory Rate 16 09/16/20 14:30 Blood Pressure 134/84 09/16/20 14:30 Pulse Oximetry 98 09/16/20 14:30 Discharge Plan Discharge Clinical Impression: Pruritic condition, Rash/skin eruption Patient Disposition: Home, Self-Care Condition: Stable Instructions: Antibiotic Form, Acute Rash (ED) Prescriptions: New cephalexin 500 mg capsule 1,000 mg PO Q12H 5 Days Qty: 20 RF: 0 prednisone 20 mg tablet 60 mg PO DAILY Qty: 15 RF: 0 No Action dextroamphetamine-amphetamine 20 mg tablet RF: 0 oxycodone 5 mg tablet RF: 0 (DME) wheelchair Qty: 1 RF: 0 (DME) hemicane Q
== END 2020-09-16 15:20 | disposition home or self-care (01) ==
PROVIDERS: Emergency Provider Emergency Medicine; PCP Family Medicine
DX: R21 Rash and other nonspecific skin eruption (principal); Z87.891 Personal history of nicotine dependence
CPT/HCPCS: 99213; G0463

== ENCOUNTER 2021-12-14 16:30 | Emergency (ER) | payer OTHER, SELFPAY ==
[2021-12-14 16:40] VITALS: BP 128/86; PULSE 81; RESP 16; TEMP 36.3; O2SAT 100
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
== END 2021-12-14 17:20 | disposition home or self-care (01) ==
PROVIDERS: Emergency Provider Nurse Practitioner; PCP Family Medicine Adolescent Medicine
DX: J34.0 Abscess, furuncle and carbuncle of nose (principal); Z87.891 Personal history of nicotine dependence
CPT/HCPCS: 99213; G0463

== ENCOUNTER 2022-03-05 11:13 | Emergency (ER) | payer OTHER, SELFPAY ==
[2022-03-05 11:18] VITALS: BP 140/78; PULSE 95; RESP 20; TEMP 36.7; O2SAT 99
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
== END 2022-03-05 12:10 | disposition home or self-care (01) ==
PROVIDERS: Emergency Provider Nurse Practitioner Family
DX: J04.0 Acute laryngitis (principal); J06.9 Acute upper respiratory infection, unspecified; Z20.822 Contact with and (suspected) exposure to COVID-19; F90.9 Attention-deficit hyperactivity disorder, unspecified type
CPT/HCPCS: 87081; 87426; 99213; C9803; G0463

== ENCOUNTER 2022-10-03 13:33 | Emergency (ER) | payer OTHER, SELFPAY ==
[2022-10-03 13:46] VITALS: BP 124/85; PULSE 86; RESP 16; TEMP 36.3; O2SAT 100
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
== END 2022-10-03 14:10 | disposition home or self-care (01) ==
PROVIDERS: Emergency Provider Nurse Practitioner; PCP Family Medicine Adolescent Medicine
DX: L01.00 Impetigo, unspecified (principal); Z87.891 Personal history of nicotine dependence; F90.9 Attention-deficit hyperactivity disorder, unspecified type
CPT/HCPCS: 99213; G0463

== ENCOUNTER 2023-12-22 09:28 | Emergency (ER) | payer OTHER, SELFPAY ==
[2023-12-22 09:37] VITALS: BP 131/82; PULSE 76; RESP 16; TEMP 36.1; O2SAT 98
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
== END 2023-12-22 10:15 | disposition home or self-care (01) ==
PROVIDERS: Emergency Provider Nurse Practitioner Family; PCP Family Medicine Adolescent Medicine
DX: K64.4 Residual hemorrhoidal skin tags (principal); Z87.891 Personal history of nicotine dependence; F90.9 Attention-deficit hyperactivity disorder, unspecified type
CPT/HCPCS: 99211; G0463

== ENCOUNTER 2024-02-02 15:16 | Emergency (ER) | payer OTHER, SELFPAY ==
--- NOTE | ~2024-02-02 | XR_ITS ---
EXAMINATION: XR chest 2V DATE: 02/02/2024 15:49 INDICATION: Nonproductive cough. TECHNIQUE: Frontal and lateral views of the chest were obtained. COMPARISON: CT abdomen and pelvis 01/21/2020, cervical spine radiographs 12/25/2010 FINDINGS: There is no pneumonia, pleural effusion, or pneumothorax. The heart size is normal. There a re old healed fractures of right clavicle and multiple right ribs. IMPRESSION: 1. No acute cardiopulmonary disease. Reviewed, dictated and finalized at location [facility]
[2024-02-02 15:27] VITALS: BP 140/91; PULSE 100; RESP 16; TEMP 36.3; O2SAT 100
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
[2024-02-02 15:49] LABS: EDSTREPNEGPOS1 Negative (Negative)
== END 2024-02-02 16:40 | disposition home or self-care (01) ==
PROVIDERS: Emergency Provider Nurse Practitioner; PCP Family Medicine Adolescent Medicine
DX: J02.9 Acute pharyngitis, unspecified (principal); Z20.818 Contact with and (suspected) exposure to other bacterial communicable diseases; Z87.891 Personal history of nicotine dependence
CPT/HCPCS: 71046; 87081; 87880; 99213; G0463

== ENCOUNTER 2024-04-20 09:02 | Emergency (ER) | payer OTHER, SELFPAY ==
[2024-04-20 09:13] VITALS: BP 130/77; PULSE 72; RESP 16; TEMP 36.8; O2SAT 100
[2024-04-20 09:20] VITALS: PULSE 72; RESP 16; O2SAT 100
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
[2024-04-20 09:54] LABS: EDCOVIDSCREEN Negative (Negative)
[2024-04-20 09:55] LABS: EDINFLUASCREEN Negative (Negative); EDINFLUBSCREEN Negative (Negative)
== END 2024-04-20 09:52 | disposition home or self-care (01) ==
PROVIDERS: Emergency Provider Nurse Practitioner; PCP Family Medicine Adolescent Medicine
DX: J06.9 Acute upper respiratory infection, unspecified (principal); R05.9 Cough, unspecified; Z20.822 Contact with and (suspected) exposure to COVID-19; F90.9 Attention-deficit hyperactivity disorder, unspecified type
CPT/HCPCS: 87426; 87804; 99213; G0463

== ENCOUNTER 2024-08-12 15:04 | Emergency (ER) | payer OTHER, SELFPAY ==
[2024-08-12 15:15] VITALS: BP 138/85; PULSE 85; RESP 16; TEMP 36.9; O2SAT 99
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
[2024-08-12 16:00] LABS: EDCOVIDSCREEN Negative (Negative); EDINFLUASCREEN Negative (Negative); EDINFLUBSCREEN Negative (Negative); EDSTREPNEGPOS1 Negative (Negative)
== END 2024-08-12 16:37 | disposition home or self-care (01) ==
PROVIDERS: Emergency Provider Nurse Practitioner Family; PCP Family Medicine Adolescent Medicine
DX: J06.9 Acute upper respiratory infection, unspecified (principal); Z20.822 Contact with and (suspected) exposure to COVID-19; Z87.891 Personal history of nicotine dependence; F90.9 Attention-deficit hyperactivity disorder, unspecified type
CPT/HCPCS: 87081; 87426; 87804; 87880; 99213; G0463

== ENCOUNTER 2025-03-07 13:58 | Emergency (ER) | payer OTHER, SELFPAY ==
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
[2025-03-07 14:11] VITALS: BP 130/103; PULSE 67; RESP 18; TEMP 36.2; O2SAT 100
[2025-03-07 14:19] LABS: EDSTREPNEGPOS1 Negative (Negative)
== END 2025-03-07 14:35 | disposition home or self-care (01) ==
PROVIDERS: Emergency Provider Nurse Practitioner Family; PCP Family Medicine Adolescent Medicine
DX: J02.9 Acute pharyngitis, unspecified (principal); F90.9 Attention-deficit hyperactivity disorder, unspecified type; Z87.891 Personal history of nicotine dependence
CPT/HCPCS: 87081; 87880; 99212; 99213; G0463